=== PATIENT | male | born 1955 ===

== ENCOUNTER 2018-03-22 16:52 | Inpatient (IN) | payer OTHER ==
[~2018-03-22] VITALS: Ht 175.3 cm; Wt 99.8 kg
== END 2018-03-26 09:28 | disposition home or self-care (01) | DRG 714 ==
LOC: O/R 03-24 05:35 → SURG 03-24 12:30 → SURH 03-24 14:09 → SURG 03-24 16:50 → EDSTATUS 03-24 16:50 → CIR.AMB 03-24 16:50 → SURH 03-26 09:28
PROVIDERS: Urology
PROC: 0VT08ZZ Resection of Prostate, Via Natural or Artificial Opening Endoscopic (ICD-10-PCS; principal; 2018-03-24 12:30)
DX: N40.0 Benign prostatic hyperplasia without lower urinary tract symptoms (principal)